=== PATIENT | female | born 2000 | race Caucasian/White ===

== ENCOUNTER 2023-12-27 19:16 | Emergency (ER) | payer OTHER, BC, SELFPAY ==
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
[2023-12-27 19:34] VITALS: BP 139/88; PULSE 98; RESP 20; TEMP 36.6; O2SAT 99
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
[2023-12-27] MEDS: ACETAMINOPHEN 500 MG TABLET 1000 MG PO (22:00)
[2023-12-27 23:59] VITALS: BP 142/76; PULSE 81; RESP 17; TEMP 36.3; O2SAT 97
== END 2023-12-28 00:01 | disposition home or self-care (01) ==
PROVIDERS: Emergency Provider Physician Assistant
DX: S09.90XA Unspecified injury of head, initial encounter (principal); Y04.0XXA Assault by unarmed brawl or fight, initial encounter
CPT/HCPCS: 70450; 70486; 99284; A9270